=== PATIENT | female | born 1955 | race Caucasian/White ===

== ENCOUNTER 2023-07-12 10:37 | Outpatient (CLI) | payer MEDICARE ==
[2023-07-12 11:59] LABS: Hematocrit 41.7 % (34.9-44.5); Mean Corpuscular HGB CONC 33.6 g/dL (32.0-36.0); Mean Corpuscular Hemoglobin 30.8 pg (27.0-33.0); Mean Corpuscular Volume 91.6 fl (81.6-98.3); Mean Platelet Volume 11.1 fl (7.4-10.4); Platelet Count 213 10x3/uL (150-450); RBC Distribution Width 14.4 % (11.5-14.5); Red Blood Cell (RBC) Count 4.55 10x6/uL (3.90-5.03); White Blood Cell (WBC) Count 4.9 10x3/uL (3.5-10.5)
[2023-07-12 12:23] LABS: Anion Gap 14 mmol/L (10-20); BUN (Urea Nitrogen) 15 mg/dL (9.8-20.1); Calc. Creatinine Clearance 0 mL/min (70-130); Calcium 10.1 mg/dL (7.8-10.44); Carbon Dioxide 25 mmol/L (23-31); Chloride 103 mmol/L (98-107); Estimated GFR 71; Glucose 95 mg/dL (80-115); Potassium 4.1 mmol/L (3.5-5.1); Sodium 138 mmol/L (136-145)
== END 2023-07-12 10:38 | disposition home or self-care (01) ==
LOC: CSHLAB 10:37
PROVIDERS: ATTEND Surgery
DX: Z01.818 Encounter for other preprocedural examination (principal)
CPT/HCPCS: 80048; 85027; 93005; 93010

== ENCOUNTER 2023-07-20 06:17 | Day surgery (SDC) | payer MEDICARE ==
[2023-07-12 11:31] VITALS: BMI 34.9
[2023-07-20] MEDS ORDERED: Scopolamine 1.5 mg/72 hour Patch ONE (07:27)
[2023-07-20] MEDS ORDERED: EPINEPHrine 1 MG/ML VIAL ONE (07:34)
[2023-07-20] MEDS ORDERED: Bupivacaine PF 0.5% 30 ML VIAL ONE (07:34)
[2023-07-20] MEDS ORDERED: CEFAZOLIN 2 GM VIAL ONE (08:15)
[2023-07-20] MEDS ORDERED: PROPOFOL 20 ML ONE (08:17)
[2023-07-20] MEDS ORDERED: Lidocaine 2% PF 5 ML VIAL ONE (08:17)
[2023-07-20] MEDS ORDERED: Ondansetron PF 4 MG/2 ML Vial ONE (09:03)
[2023-07-20] MEDS ORDERED: Promethazine HCl 25 MG/ML VIAL ONE (09:03)
[2023-07-20] MEDS ORDERED: Dexamethasone 20 MG/5 ML VIAL ONE (09:03)
[2023-07-20] MEDS ORDERED: HYDROcodone/Acetaminophen 5/325 mg Tablet PO PRN (09:26)
[2023-07-20] MEDS ORDERED: Acetaminophen 325 MG TAB PO PRN (09:26)
== END 2023-07-20 10:30 | disposition home or self-care (01) ==
LOC: CSHSDC 06:17
PROVIDERS: ATTEND Surgery
PROC: 0HBT0ZZ Excision of Right Breast, Open Approach (ICD-10-PCS; principal; 2023-07-20)
DX: N60.91 Unspecified benign mammary dysplasia of right breast (principal); N60.21 Fibroadenosis of right breast; R92.0 Mammographic microcalcification found on diagnostic imaging of breast; I12.9 Hypertensive chronic kidney disease with stage 1 through stage 4 chronic kidney disease, or unspecified chronic kidney disease; N18.31 Chronic kidney disease, stage 3a; E78.5 Hyperlipidemia, unspecified; F32.A Depression, unspecified; F41.9 Anxiety disorder, unspecified; E66.01 Morbid (severe) obesity due to excess calories; Z68.35 Body mass index [BMI] 35.0-35.9, adult; Z96.651 Presence of right artificial knee joint; Z96.619 Presence of unspecified artificial shoulder joint; Z91.048 Other nonmedicinal substance allergy status; Z79.899 Other long term (current) drug therapy; Z88.5 Allergy status to narcotic agent; Z88.1 Allergy status to other antibiotic agents; Z79.82 Long term (current) use of aspirin; Z90.710 Acquired absence of both cervix and uterus
CPT/HCPCS: 19301; 76098; J0171; 88307; J1100; J2001; J2405; J2550; J2704; S0020

== ENCOUNTER 2024-07-10 10:02 | Outpatient (CLI) | payer MEDICARE | END 2024-07-10 10:03 | disposition home or self-care (01) | LOC: CSHMAMMO 10:02 | PROVIDERS: ATTEND Surgery | DX: Z12.31 Encounter for screening mammogram for malignant neoplasm of breast (principal); Z98.890 Other specified postprocedural states | CPT/HCPCS: 77063; 77067 ==

== ENCOUNTER 2025-07-07 13:23 | Outpatient (CLI) | payer OTHER | END 2025-07-07 13:24 | disposition home or self-care (01) | LOC: CSHMAMMO 13:23 | PROVIDERS: ATTEND Surgery | DX: Z12.31 Encounter for screening mammogram for malignant neoplasm of breast (principal); Z98.890 Other specified postprocedural states | CPT/HCPCS: 77063; 77067 ==